=== PATIENT | male | born 1985 | race Caucasian/White ===

== ENCOUNTER 2016-08-20 20:46 | Emergency (ER) | payer MEDICAID ==
[2016-08-20 20:54] VITALS: RESP 18; TEMP 98.1; O2SAT 94
[2016-08-20] MEDS ORDERED: IPRATROPIUM/ALBUTEROL 3 ML DEYVIAL IH ONE (20:55)
[2016-08-20] MEDS ORDERED: IPRATROPIUM/ALBUTEROL 3 ML DEYVIAL ONE ×2 (20:57→21:01)
[2016-08-20] MEDS ORDERED: predniSONE 20 MG TAB PO ONE (21:01)
--- NOTE | 2016-08-20 21:03 | EDPHY ---
H & P Stated Complaint: difficulty breathimng - Personal History Current Tetanus/Diphtheria Vaccine: Unsure Current Tetanus Diphtheria and Acellular Pertussis (TDAP): Unsure - Medical/Surgical History Hx Asthma: Yes Hx Chronic Respiratory Disease: No Hx Diabetes: No Hx Cardiac Disease: No Hx Renal Disease: No Hx Cirrhosis: No Hx Alcoholism: No Hx HIV/AIDS: No Hx Splenectomy or Spleen Trauma: No Other PMH: asthma, - Social History Smoking Status: Never smoked Time Seen by Provider: 08/20/16 20:56 HPI/ROS: CHIEF COMPLAINT: "I am short of breath" HISTORY OF PRESENT ILLNESS: 31-year-old male with prior history of reactive airway disease notes that intermittently for the past several years after he smokes marijuana he will developed wheezing. For the past 1 week he has noticed an increase in his wheezing and dyspnea, worsened tonight and transported via private vehicle to the emergency department. No chest pain. No cold or flu-like symptoms. No fever or chills. No back or flank pain. No influenza vaccination. No cocaine use. No chest or other trauma. PRIMARY CARE PROVIDER: no primary care provider REVIEW OF SYSTEMS: A ten point review of systems was performed and is negative with the exception of the items mentioned in the HPI PAST MEDICAL & SURGICAL HISTORY: Reactive airways disease. No PE/DVT history SOCIAL HISTORY: positive marijuana smoking FAMILY HISTORY: No family history of thromboembolic disorder. PHYSICAL EXAM (Prior to examination, patient consented to physical exam, hands were washed and my usual and customary physical exam procedures followed) 1) GENERAL: Well-developed, well-nourished, alert and oriented. Appears uncomfortable. 2) HEAD: Normocephalic, atraumatic 3) HEENT: Pupils equal, round, reactive to light bilaterally. Sclera anicteric. Nasopharynx, oropharynx, clear, no lesions. Ears bilaterally with normal tympanic membranes. 4) NECK: Full range of motion, no meningeal signs. 5) LUNGS: Bilateral end-expiratory wheeze, no retractions or accessory muscle use 6) HEART: Regular rate and rhythm, no murmur, no heave, no gallop. 7) ABDOMEN: No guarding, no rebound, no focal tenderness, negative McBurney's, negative Alonzo's, negative Rovsing's, negative peritoneal sign, 8) MUSCULOSKELETAL: Moving all extremities, no focal areas of tenderness, no obvious trauma. No peripheral edema or discoloration. 9) BACK: No CVA tenderness, no midline vertebral tenderness, no fluctuance, no step-off, no obvious trauma, no visual or palpable abnormality. 10) SKIN: No rash, no petechiae. 11) Psychiatric: Patient is oriented X 3, there is no agitation. DIFFERENTIAL DIAGNOSIS: in no particular include but limited to acute asthma exacerbation, pneumothorax, PE (Arabella Pickard) Constitutional: Initial Vital Signs Temperature (C) 36.7 C 08/20/16 20:51 Heart Rate 114 H 08/20/16 20:51 Respiratory Rate 18 08/20/16 20:51 Blood Pressure 139/88 H 08/20/16 20:51 O2 Sat (%) 94 08/20/16 20:51 O2 Delivery Mode Room Air Allergies/Adverse Reactions: No Known Allergies Allergy (Unverified 08/20/16 20:50) Home Medications: Medication Instructions Recorded AZITHROMYCIN [Z-PACK] 500 mg PO DAILY #1 packet 08/20/16 Albuterol [Proventil Inhaler HFA 1 - 2 puffs IH Q4PRN PRN #1 mdi 08/20/16 (*)] Primatene Asthma Tablet 08/20/16 predniSONE [Prednisone] 20 mg PO DAILY #9 tablet 08/20/16 Medical Decision Making - Diagnostics Imaging: PA and lateral chest. Clinical History: PAIN Comparison Study: None available. Findings: The lungs are clear. No pleural disease identified. Heart size is normal. Visualized osseous structures appear normal. Impression: Normal chest. Dictated By: iLban Francis MD Images reviewed by myself (Arabella Pickard) ED Course/Re-evaluation: 10:00 p.m.: Re-evaluation "I am feeling much much better". Lungs re-evaluated , clear bilaterally. Maintain normal saturations. Reviewed his diagnostic results with him. Plan will be discharged with prednisone, albuterol, azithromycin. Given [facility] follow-up information. Given usual customary pulmonary precautions instructions. He feels comfortable being discharged. Doubt PE. (Arabella Pickard) The patient was evaluated and managed by the physician photographer assistant. I have reviewed this chart and I agree with the findings and plan of care as documented , as indicated by my signature. I am the secondary supervising physician. ( Betsy Kumar) - Data Points Laboratory Results: 08/20/16 21:02 Influenza Typ A,B (DFA) NEGATIVE FOR FLU (NEGATIVE) Medications Given: Discontinued Medications Albuterol Sulfate (Proventil Inh Prepack) 1 mdi TAKEHOME EDNOW ONE Stop: 08/20/16 22:21 Last Admin: 08/20/16 22:25 Dose: 1 mdi Albuterol/Ipratropium (Duoneb) 6 ml IH EDNOW ONE Stop: 08/20/16 20:56 Last Admin: 08/20/16 20:55 Dose: 6 ml Prednisone (Prednisone) 60 mg PO EDNOW ONE Stop: 08/20/16 21:02 Last Admin: 08/20/16 21:35 Dose: 60 mg Departure - Departure Disposition: Home, Routine, Self-Care Clinical Impression: Exacerbation of asthma Condition: Good Instructions: Albuterol (By breathing), Prednisone (By mouth), Azithromycin ( By mouth), Asthma (ED) Additional Instructions: Return to the emergency department immediately for change in breathing habits, change in voice, change in swallowing habits, change in mental status, or any other symptoms that concern you. Referrals: [facility],. [Clinic] - 1-2 days without fail Prescriptions: Albuterol [Proventil Inhaler HFA (*)] 1 - 2 puffs IH Q4PRN PRN #1 mdi PRN Reason: Cough, Moderate AZITHROMYCIN [Z-PACK] 500 mg PO DAILY #1 packet predniSONE [Prednisone] 20 mg PO DAILY #9 tablet
[2016-08-20] MEDS ORDERED: ALBUTEROL INH PREPACK MDI TAKEHOME ONE ×2 (22:20→22:21)
[2016-08-20 22:25] VITALS: BP 108/70; PULSE 110
== END 2016-08-20 22:24 | disposition home or self-care (01) ==
DX: J45.901 Unspecified asthma with (acute) exacerbation (principal)